=== PATIENT | female | born 1985 ===

== ENCOUNTER 2017-07-23 09:25 | Outpatient (CLI) | payer OTHER ==
[~2017-07-23] VITALS: Ht 154.9 cm; Wt 60.8 kg
[~2017-07-23 09:25] MED LIST: PRENATAL1 TAB PO; SYNTHROID50 MCG PO
[2017-07-23] MEDS ORDERED: SWIM EAR DRO29.57 ML OT (10:35)
== END 2017-07-23 09:45 | disposition home or self-care (01) ==
LOC: OFIC 805 09:25
DX: H60.8X1 Other otitis externa, right ear (principal)

== ENCOUNTER → 2018-03-23 09:17 | Outpatient (CLI) | payer OTHER ==
[~2018-03-23 09:17] MED LIST changes: +SWIM EAR DRO29.57 ML OT
== END | disposition home or self-care (01) ==
LOC: LAB 09:17
DX: E04.1 Nontoxic single thyroid nodule (principal); E03.8 Other specified hypothyroidism

== ENCOUNTER 2018-03-23 09:57 | Outpatient (CLI) | payer OTHER | END 2018-03-23 10:00 | disposition home or self-care (01) | LOC: SONOGRAMA 09:57 | DX: E04.1 Nontoxic single thyroid nodule (principal); E03.8 Other specified hypothyroidism ==

== ENCOUNTER 2019-12-17 08:34 | Outpatient (CLI) | payer OTHER | END 2019-12-17 08:44 | disposition home or self-care (01) | LOC: RAD 08:34 | PROVIDERS: ATTEND Internal Medicine | DX: M25.511 Pain in right shoulder (principal); M06.211 Rheumatoid bursitis, right shoulder; M17.0 Bilateral primary osteoarthritis of knee; M25.561 Pain in right knee; M25.562 Pain in left knee; M79.12 Myalgia of auxiliary muscles, head and neck; G24.3 Spasmodic torticollis ==

== ENCOUNTER 2022-08-22 07:58 | Outpatient (CLI) | payer OTHER | END 2022-08-22 08:09 | disposition home or self-care (01) | LOC: SONOGRAMA 07:58 | PROVIDERS: ATTEND Internal Medicine | DX: E03.9 Hypothyroidism, unspecified (principal); R10.2 Pelvic and perineal pain ==

== ENCOUNTER 2024-11-01 10:20 | Outpatient (CLI) | payer OTHER | END 2024-11-01 10:23 | disposition home or self-care (01) | LOC: MAMO-SONO 10:20 | PROVIDERS: ATTEND Obstetrics & Gynecology Gynecology | DX: D48.61 Neoplasm of uncertain behavior of right breast (principal); Z12.31 Encounter for screening mammogram for malignant neoplasm of breast; E03.8 Other specified hypothyroidism; D44.0 Neoplasm of uncertain behavior of thyroid gland ==